=== PATIENT | male | born 1995 | race Caucasian/White ===

== ENCOUNTER 2020-02-15 20:36 | Emergency (ER) | payer MEDICAID, SELFPAY ==
[2020-02-15 20:44] VITALS: BP 143/97; PULSE 100; RESP 16; TEMP 36.9; O2SAT 98; BMI 19.8
--- NOTE | 2020-02-15 20:50 | W.ED.EXTPRO ---
HPI - Extremity Problem General: Chief complaint: Extremity Injury, Lower Stated complaint: left foot lac Time Seen by Provider: 02/15/20 20:42 Source: patient Mode of arrival: ambulatory Limitations: no limitations History of Present Illness: HPI Narrative: 24-year-old male who stepped on a fishhook roughly 30 minutes ago. Tavares is embedded into his left heel. He states is painful and rates his pain a 5 out of 10. Denies any worsening improving factors. His last tetanus was 2 years ago. This did not go through his shoe. Associated symptoms: Deny chest pain, fever(s) or rash Review of Systems Const: Denies: fever, chills, body aches or change in appetite Eyes: Denies: blurry vision or eye discomfort ENMT: Denies: throat pain or dental pain Card: Denies: chest pain Resp: Denies: shortness of breath GI: Denies: abdominal pain, nausea, vomiting or diarrhea : Denies: painful urination Musc: Denies: neck pain or back pain Skin/Breast: Denies: rash Neuro: Denies: headache Psych: Denies: depression Maninder/Lymph: Denies: easy bruising All/Imm: Denies: hives PFSH ED PFSH: Social History Smoking and tobacco status: never smoked Physical Exam Const: COMMON NORMALS: no apparent distress, oriented x3 and healthy appearing HENMT: COMMON NORMALS: normocephalic and head/scalp atraumatic HEAD & SCALP: normocephalic and atraumatic Eye: COMMON NORMALS: PERRL and EOMs intact bilaterally PUPIL: Yes PERRL Neck/C-Spine: COMMON NORMALS: full ROM and supple Chest: COMMONS NORMALS: inspection of chest normal and palpation of chest normal Resp: COMMON NORMALS: normal respiratory effort, no retractions, no use of accessory muscles and clear to auscultation bilaterally AUSCULTATION: clear to auscultation bilaterally Cardio: COMMON NORMALS: regular rate, regular rhythm and no murmurs RATE: regular rate RHYTHM: regular rhythm GI: COMMON NORMALS: normal to inspection, nondistended, normoactive bowel sounds, soft to palpation, non-tender and no masses PALPATION: Yes soft Extremity: COMMON NORMALS: normal to inspection and full ROM Neuro: COMMON NORMALS: oriented x3, moves all extremities and no focal motor deficits Psych: COMMON NORMALS: mental status grossly normal, thought process normal and cooperative THOUGHT PROCESS: normal thought process Skin: COMMON NORMALS: no rashes or lesions noted and no wounds NARRATIVE SKIN EXAM: Lissette fishhook to left heel GENERAL SKIN EXAM: no rashes or lesions noted Procedures Foreign Body Removal Site: left and foot (heel) Description of foreign body: fish hook Sedation/Analgesia: other (10ml lidocaine without epi) Technique: manual removal Confirmed by:: direct visualization Complications: none Post-procedure exam: awake, alert Neurovascular: normal distal pulse Course Vital Signs: Vital signs: Vital Signs Temperature 98.4 F 02/15/20 20:44 Pulse Rate 100 02/15/20 20:44 Respiratory Rate 16 02/15/20 20:44 Blood Pressure 143/97 02/15/20 20:44 Pulse Oximetry 98 02/15/20 20:44 MDM - Extremity (Nontraumatic) MDM Narrative: Medical decision making narrative: Patient presents here with fishhook to the bottom of his foot that I suspect is fully removed without any difficulty. I push the fishhook through is can clip the lissette off and pulled the rest out. Patient is stable for discharge and will place on Augmentin. He is to return if worsening. He understands agrees to plan. Discharge Plan Discharge Patient Disposition: Home, Self-Care Clinical Impression: Foreign body in foot Qualifiers: Encounter type: initial encounter Laterality: left Qualified Code(s): S90.852A - Superficial foreign body, left foot, initial encounter Condition: Stable Prescriptions: New Augmentin 875-125 mg tablet 1 tab PO BID Qty: 14 RF: 0 Discharge Orders: Discharge Order (Routine); Ordered 02/15/20 Ordered By: Uvaldo Martinez Discharge Diet: Advance as tolerated Discharge Activity: Resume usual activity Patient Instructions: Soft Tissue Foreign Body (ED) Coding Level of Care Code ED Head Of Training And Development for Apolonia Aguillon
--- NOTE | 2020-02-15 20:52 | PC.NURSE ---
Received patient to ER via ambulation with complaint of stepping on a fish hook getting it stuck in his left heel.
== END 2020-02-15 21:02 | disposition home or self-care (01) ==
LOC: ER 20:51
PROVIDERS: Emergency Provider Emergency Medicine
DX: S90.852A Superficial foreign body, left foot, initial encounter (principal); W22.8XXA Striking against or struck by other objects, initial encounter
CPT/HCPCS: 12345; 99281; 99283

== ENCOUNTER 2020-06-22 18:59 | Emergency (ER) | payer MEDICAID, SELFPAY ==
[2020-06-22 19:03] VITALS: BP 127/91; PULSE 91; RESP 18; TEMP 36.6; O2SAT 97; BMI 15.2
--- NOTE | 2020-06-22 19:07 | ED_ITS ---
HPI - Nausea/Vomiting/Diarrhea General: Chief complaint: Nausea/Vomiting/Diarrhea Stated complaint: VOMITING Time Seen by Provider: 06/22/20 19:06 Source: patient Mode of arrival: ambulatory Limitations: no limitations History of Present Illness: HPI Narrative: Patient is a 24-year-old male presents to ED today with a complaint of nausea and vomiting that began approximately an hour ago. Patient tells me he was outside and he just came inside when he began developing nausea. He states he has vomited approximately 10 times. He does not describe any episodes of hematemesis or coffee-ground emesis. He complains of some abdominal pain during episodes of vomiting but otherwise none. He has been having normal bowel movements. No fevers. Denies bad food exposure. No recent antibiotic use. No new medications. No sick contacts. MD elicited complaint: nausea, vomiting and abdominal pain Onset (ago): hour(s) Description of vomiting: watery Associated nausea: Yes Associated abdominal pain: Yes Associated symtoms: Reports nausea; Denies bloating, change in vision, chest pain or dysuria Review of Systems Const: Denies: fever(s) or chills Eyes: Denies: change in vision ENMT: Denies: throat pain, odynophagia or oral sores Card: Denies: chest pain Resp: Denies: dyspnea GI: Reports: abdominal pain, nausea and vomiting; Denies: hematemesis, coffee ground emesis, dysphagia, heartburn, diarrhea, bloating or change in bowel habits : Denies: flank pain, difficulty urinating, dysuria, urinary frequency or urinary urgency Musc: Denies: neck pain, back pain or extremity pain Skin/Breast: Denies: rash Neuro: Denies: numbness in extremities, weakness in extremities or sensory changes PFS ED PFSH: Social History Smoking and tobacco status: never smoked Physical Exam Const: COMMON NORMALS: no acute distress, average body habitus, patient oriented x3, no limitations, healthy appearing, alert and well nourished ORIENTATION/CONSCIOUSNESS: Yes oriented to person, Yes oriented to place and Yes oriented to time Resp: COMMON NORMALS: normal respiratory effort and clear to auscultation bilaterally AUSCULTATION: clear to auscultation bilaterally Cardio: COMMON NORMALS: regular rate and regular rhythm RATE: regular rate RHYTHM: regular rhythm GI: COMMON NORMALS: Normal to inspection, nondistended, normoactive bowel sounds present, Soft to palpation, No hepatosplenomegaly present and no masses PALPATION: Yes Soft to palpation, Yes Tenderness to palpation present (GI) (epigastric; throughout lower abdomen; non-surgical exam) and Yes No hepatosplenomegaly present : COMMON NORMALS: Yes no CVA tenderness BLADDER/KIDNEY EXAM: Yes no CVA tenderness Back/Pelvis: COMMON NORMALS: no CVA tenderness Extremity: COMMON NORMALS: normal to inspection Neuro: COMMON NORMALS: patient oriented x3 SENSORIUM/ORIENTATION: Yes alert, Yes oriented to person, Yes oriented to place and Yes oriented to time Skin: COMMON NORMALS: no rashes or lesions noted GENERAL SKIN EXAM: no rashes or lesions noted Course Vital Signs: Vital signs: Vital Signs Temperature 97.8 F 06/22/20 19:03 Pulse Rate 78 06/22/20 20:21 Respiratory Rate 16 06/22/20 20:21 Blood Pressure 123/87 06/22/20 20:21 Pulse Oximetry 99 06/22/20 20:21 MDM - Nausea/Vomiting/Diarrhea MDM Narrative: Medical decision making narrative: Patient symptoms just beginning an hour ago. He states he feels much better after Zofran, fluids, and a GI cocktail. He was able to hold down Sprite and crackers. He has a nonsurgical abdomen at this time. I do not feel emergent imaging is warranted at this time. He does have a white count of 22,000 on his CBC however I feel this is most likely reactive/from patient vomiting over the past hour. Strict return to ED precautions were given. Lab Data: Labs: Lab Results 06/22/20 06/22/20 Range/Units 19:22 19:22 WBC 22.7 H (4.0-10.0) 10^3/ uL RBC 5.46 H (4.1-5.3) 10^6/u L Hgb 16.2 (11.7-16.6) g/dL Hct 48.7 (42.0-52.0) % MCV 89.2 (80-94) fL MCH 29.7 (28.0-34.0) pg MCHC 33.3 (30.0-36.0) g/dL RDW 11.9 L (12.1-15.1) % Plt Count 313 (130-400) 10^3/c mm MPV 10.8 H (7.4-10.4) fL Neut % (Auto) 82.5 % Lymph % (Auto) 7.9 % [place] % (Auto) 7.1 % Eos % (Auto) 1.7 % Baso % (Auto) 0.4 % Neut # (Auto) 18.77 H (1.8-7.7) 10^3/u L Lymph # (Auto) 1.8 (0.8-4.8) 10^3/u L [place] # (Auto) 1.6 H (0.2-0.9) 10^3/u L Eos # (Auto) 0.4 (0.0-0.8) 10^3/u L Baso # (Auto) 0.1 (0.0-0.1) 10^3/u L Nucleated RBC % (a uto) 0 % Nucleated RBCs # 0.0 /100WBC Sodium 140 (136-145) mmol/L Potassium 3.7 (3.5-5.1) mmol/L Chloride 101 (98-107) mmol/L Carbon Dioxide 26 (22-29) mmol/L Anion Gap 16.7 (5-19) BUN 18 (6-20) mg/dL Creatinine 0.9 (0.7-1.2) mg/dL GFR Calculation 105.5 (90-130) mL/min Glucose 127 H (65-115) mg/dL Calculated Osmolal ity 288 (285-295) mOsm/k g Calcium 10.6 H (8.5-10.5) mg/dL Total Bilirubin 2.0 H (0.15-1.2) mg/dL AST 25 (0-40) U/L ALT 17 (0-41) U/L Alkaline Phosphata se 91 (40-130) IU/L Total Protein 8.2 (6.6-8.7) g/dL Albumin 5.9 H (3.5-5.2) g/dL Globulin 2.3 (1.3-4.6) g/dL Discharge Plan Discharge Patient Disposition: Home Clinical Impression: Nausea & vomiting Qualifiers: Vomiting type: unspecified Vomiting Intractability: non-intractable Qualified Code(s): R11.2 - Nausea with vomiting, unspecified Condition: Stable Prescriptions: New Zofran 4 mg tablet 4 mg PO Q6H PRN (Reason: nausea and vomiting) Qty: 14 RF: 0 Discharge Orders: Discharge Order (Routine); Ordered 06/22/20 Ordered By: Sharlene Rausch Patient Instructions: Acute Nausea and Vomiting (ED) Activity Restrictions/Additional Instructions: As discussed please return to the emergency department for worsening abdominal pain, repetitive episodes of vomiting, blood in your vomit, fevers, or any other concerns you may have. Discharge Date/Time: 06/22/20 20:29 Coding Level of Care Code ED Sergeant Of Corrections for Chg Fwd Exam Detailed
[2020-06-22] MEDS: sodium chloride 0.9% 1,000 ML 999 ML IV (19:25)
[2020-06-22] MEDS: ondansetron 2 mg/ML SDV 2 mL 4 MG IVP (19:25)
[2020-06-22 19:31] LABS: Basophils # 0.1 10^3/uL (0.0-0.1); Basophils % 0.4 %; Eosinophils # 0.4 10^3/uL (0.0-0.8); Eosinophils % 1.7 %; Hematocrit 48.7 % (42.0-52.0); Hemoglobin 16.2 g/dL (11.7-16.6); Lymphocytes # 1.8 10^3/uL (0.8-4.8); Lymphocytes % 7.9 %; Mean Corpuscular HGB Conc 33.3 g/dL (30.0-36.0); Mean Corpuscular Hemoglobin 29.7 pg (28.0-34.0); Mean Corpuscular Volume 89.2 fL (80-94); Mean Platelet Volume 10.8 fL (7.4-10.4); Monocytes # 1.6 10^3/uL (0.2-0.9); Monocytes % 7.1 %; Neutrophils # 18.77 10^3/uL (1.8-7.7); Neutrophils % 82.5 %; Nucleated Red Blood Cells % 0 %; Platelet Count 313 10^3/cmm (130-400); Red Blood Count 5.46 10^6/uL (4.1-5.3); Red Cell Distribution Width 11.9 % (12.1-15.1); White Blood Count 22.7 10^3/uL (4.0-10.0)
[2020-06-22] MEDS: lidocaine 2% viscous 15 ML, aluminum-mag hydrox-simethicon 30 ML, sucralfate oral liq 1 GM PO (19:38)
[2020-06-22 19:54] LABS: Alanine Aminotransferase 17 U/L (0-41); Albumin Level 5.9 g/dL (3.5-5.2); Alkaline Phosphatase 91 IU/L (40-130); Anion Gap 16.7 (5-19); Aspartate Amino Transferase 25 U/L (0-40); Blood Urea Nitrogen 18 mg/dL (6-20); Calcium 10.6 mg/dL (8.5-10.5); Carbon Dioxide 26 mmol/L (22-29); Chloride 101 mmol/L (98-107); Globulin 2.3 g/dL (1.3-4.6); Glomerular Filtration Rate 105.5 mL/min (90-130); Glucose 127 mg/dL (65-115); Osmolality Calculated 288 mOsm/kg (285-295); Potassium 3.7 mmol/L (3.5-5.1); Sodium 140 mmol/L (136-145); Total Protein 8.2 g/dL (6.6-8.7)
[2020-06-22 20:21] VITALS: BP 123/87; PULSE 78; RESP 16; O2SAT 99
[2020-06-22] MEDS: ondansetron 4 MG Tablet PO (20:24)
== END 2020-06-22 20:29 | disposition home or self-care (01) ==
PROVIDERS: Emergency Provider Physician Assistant
DX: R11.2 Nausea with vomiting, unspecified (principal)
CPT/HCPCS: 12345; 36415; 80053; 85025; 96361; 96374; 99282; 99283; J2405; J7030; Q0162

== ENCOUNTER 2025-09-12 11:53 | Emergency (ER) | payer MEDICAID, SELFPAY ==
[2025-09-12 11:57] VITALS: BP 128/76; PULSE 60; RESP 14; TEMP 36.4; O2SAT 100; BMI 16.1
[2025-09-12 12:32] LABS: Glucose Urine UA Negative (Normal); Nitrate Urine Negative (Negative); Specific Gravity, Urine 1.028 (1.005-1.030)
[2025-09-12 12:40] LABS: Add Urine Microscopic? YES
[2025-09-12 12:56] LABS: UA Slide Review UA Slide Review Perf
--- NOTE | 2025-09-12 13:22 | CTR_ITS ---
PROCEDURE INFORMATION: Exam: CT Abdomen And Pelvis Without Contrast Exam date and time: 09/12/2025 1:41 PM Age: 30 years old Clinical indication: Other: Hematuria; Other: Suprapubic pain; Additional info: Suprapubic pain, hematuria TECHNIQUE: Imaging protocol: Computed tomography of the abdomen and pelvis without contrast. Radiation optimization: All CT scans at this facility use at least one of these dose optimization techniques: automated exposure control; mA and/or kV adjustment per patient size (includes targeted exams where dose is matched to clinical indication); or iterative reconstruction. COMPARISON: CR XR ribs RT mn 3V w [id number] 05/15/2019 4:20 PM RADIATION DOSE METRICS: Total DLP (mGy-cm): 301.13 FINDINGS: Liver: Normal. No mass. Gallbladder and biliary ducts: Normal. No calcified stones. No ductal dilation. Pancreas: Normal. No ductal dilation. Spleen: Normal. No splenomegaly. Adrenal glands: Normal. No mass. Kidneys and ureters: There is slight prominence of the distal right ureter. 1-2 mm stone is seen at the right ureterovesical junction or possibly just beyond it in the bladder. Stomach and bowel: Unremarkable. No obstruction. No mucosal thickening. Appendix: No evidence of appendicitis. Intraperitoneal space: Unremarkable. No free air. No significant fluid collection. Vasculature: Unremarkable. No abdominal aortic aneurysm. Lymph nodes: Unremarkable. No enlarged lymph nodes. Urinary bladder: See Kidneys and ureters finding. Reproductive: Unremarkable as visualized. Bones/joints: Minimal multifocal hyperdensities are seen in the right kidney which may be medullary. It may represent forme fruste of renal stones. Soft tissues: Unremarkable. CT/CT abdomen pelvis wo con [id number] IMPRESSION: 1. 1-2 mm calculus at the right ureterovesical junction or possibly just beyond it with slight distal ureterectasis on the right. 2. Possible early stones in the right kidney. COMMENTS: Consistent with the [employer] [employer]'s Incidental Findings Committee white paper (J Am Addie Radiol 2018): Any incidental renal lesion less than 1 cm or classified as too small to characterize, or any incidental cystic renal lesion characterized as simple-appearing, is likely benign. No follow-up imaging is recommended for these lesions per consensus recommendations based on imaging criteria.
--- NOTE | 2025-09-12 13:24 | ED_ITS ---
HPI - Abdominal Pain General: Chief Complaint: Abdominal Pain Stated Complaint: groin pain Time Seen by Provider: 09/12/25 13:03 History of Present Illness: Patient is stating he got up to void this morning, and had severe suprapubic pain, where he could not void. 3 days ago, he had blood in his urine. He has never had this occur before. He is main complaint is the dysuria. He states he does not fully empty his bladder, and feels as if he needs to void again. Associated Symptoms: Reports nausea; Denies bloating, change in bowel habits, chills, coffee ground emesis, diarrhea, dysuria, fever(s), heartburn, hematemesis and vomiting Related Data Previous Rx's ?Medication ?Instructions ?Recorded cephalexin 500 mg capsule 500 mg PO BID 5 days #10 cap s 09/12/25 cephalexin 500 mg capsule 500 mg PO BID 5 days #10 cap s 09/12/25 ketorolac 10 mg tablet 10 mg PO Q8H PRN pain 5 days #14 09/12/25 tabs methocarbamol 750 mg tablet 750 mg PO Q8H PRN muscle s pasm #30 09/12/25 tabs tamsulosin 0.4 mg capsule 0.4 mg PO DAILY #30 caps 12/06 Allergies Allergy/AdvReac Type Severity Reaction Status Date / Time No Known Allergies Allergy Verified 09/12/25 12:02 Review of Systems Const: Denies: fever(s) or chills Eyes: Denies: change in vision ENMT: Denies: throat pain, odynophagia or oral sores Card: Denies: chest pain or palpitations Resp: Denies: dyspnea or non-productive cough GI: Reports: abdominal pain and nausea; Denies: vomiting, hematemesis, coffee ground emesis, dysphagia, heartburn, diarrhea, bloating or change in bowel habits : Denies: flank pain, difficulty urinating, dysuria, urinary frequency or urinary urgency Musc: Denies: neck pain, back pain or extremity pain Skin/Breast: Denies: rash Neuro: Denies: numbness in extremities, weakness in extremities or sensory changes PFSH ED PFSH: Social History Smoking and tobacco/nicotine status: never used tobacco/nicotine Physical Exam Const: COMMON NORMALS: no acute distress, average body habitus, patient oriented x3, no limitations, healthy appearing, alert and well nourished ORIENTATION/CONSCIOUSNESS: Yes oriented to person, Yes oriented to place and Yes oriented to time HENMT: COMMON NORMALS: normocephalic and atraumatic HEAD & SCALP: normocephalic and atraumatic Neck/C-Spine: COMMON NORMALS: full ROM, no lymphadenopathy and supple Lymph: LYMPHATIC: no lymphadenopathy noted Resp: COMMON NORMALS: normal respiratory effort and clear to auscultation bilaterally AUSCULTATION: clear to auscultation bilaterally Cardio: COMMON NORMALS: regular rate and regular rhythm RATE: regular rate RHYTHM: regular rhythm GI: COMMON NORMALS: Soft to palpation, No hepatosplenomegaly present and no masses PALPATION: Yes Soft to palpation, Yes Tenderness to palpation present (GI) (Suprapubic), No Guarding due to palpation present (GI) and Yes No hepatosplenomegaly present : COMMON NORMALS: Yes no CVA tenderness BLADDER/KIDNEY EXAM: Yes no CVA tenderness Back/Pelvis: COMMON NORMALS: no CVA tenderness Extremity: COMMON NORMALS: normal to inspection Neuro: COMMON NORMALS: patient oriented x3 SENSORIUM/ORIENTATION: Yes alert, Yes oriented to person, Yes oriented to place and Yes oriented to time Skin: COMMON NORMALS: no rashes or lesions noted GENERAL SKIN EXAM: no rashes or lesions noted Course Vital Signs: Vital signs: Vital Signs Temperature 97.5 F L 09/12/25 11:57 Pulse Rate 59 L 09/12/25 14:47 Respiratory Rate 16 09/12/25 14:47 Blood Pressure 126/58 09/12/25 14:47 Pulse Oximetry 96 09/12/25 14:47 Oxygen Delivery Me thod Room Air 09/12/25 13:31 MDM - Abdominal Pain Medical Decision Making Patient is a 30-year-old male presents to ED with suprapubic pain. He was found to have renal colic with 1 to 2 mm calculus at UVJ. He also had a slight distal possibly early stone. Will refer him to urology. Will have him strain his urine. Tamsulosin, antibiotic, and analgesics sent to the pharmacy. All of his questions answered to his satisfaction. Medical Records I reviewed the patient's medical records. Lab Data I reviewed the patient's lab results. Labs/Radiology: Radiology Impressions Abdomen/Pelvis CT 09/12/25 13:22 IMPRESSION: 1. 1-2 mm calculus at the right ureterovesical junction or possibly just beyond it with slight distal ureterectasis on the right. 2. Possible early stones in the right kidney. COMMENTS: Consistent with the [place] [employer]'s Incidental Findings Committee white paper (J Am Addie Radiol 2018): Any incidental renal lesion less than 1 cm or classified as too small to characterize, or any incidental cystic renal lesion characterized as simple-appearing, is likely benign. No follow-up imaging is recommended for these lesions per consensus recommendations based on imaging criteria. Laboratory Results Urine Color Yellow (Yellow) 09/12/25 12:16 Urine Appearance Clear (CLEAR) 09/12/25 12:16 Urine pH 5.5 (5-7) 09/12/25 12:16 Ur Specific [place] 1.028 (1.005-1.030) 09/12/25 12:16 Urine Protein 3+ (Negative) A 09/12/25 12:16 Urine Glucose (UA) Negative (Normal) 09/12/25 12:16 Urine Ketones Negative (Negative) 09/12/25 12:16 Urine Blood 3+ (Negative) A 09/12/25 12:16 Urine Nitrate Negative (Negative) 09/12/25 12:16 Urine Bilirubin Negative (Negative) 09/12/25 12:16 Urine Urobilinogen 1.0 mg/dL (Negative) 09/12/25 12:16 Ur Leukocyte Esterase Negative (Negative) 09/12/25 12:16 Urine RBC 3-5 /hpf (0-2) 09/12/25 12:16 Urine WBC 0-5 /hpf (0-5) 09/12/25 12:16 Ur Squamous Epith Cells 0-5 /hpf (0-5) 09/12/25 12:16 Amorphous Sediment Not Reportable 09/12/25 12:16 Urine Bacteria None seen /hpf (NONE) 09/12/25 12:16 Hyaline Casts 4.11 /lpf 09/12/25 12:16 C. trachomatis (PCR) Not detected (Negative) 09/12/25 13:33 N. gonorrhoeae (PCR) Not detected (Negative) 09/12/25 13:33 All radiology interpretation(s) finalized by discharge Discharge Plan Discharge Patient Disposition: Home Clinical Impression: Ureterolithiasis Condition: Stable Prescriptions: New cephalexin 500 mg capsule 500 mg PO BID 5 Days Qty: 10 0RF tamsulosin 0.4 mg capsule 0.4 mg PO DAILY Qty: 30 0RF cephalexin 500 mg capsule 500 mg PO BID 5 Days Qty: 10 0RF ketorolac 10 mg tablet 10 mg PO Q8H PRN (Reason: pain) 5 Days Qty: 14 0RF methocarbamol 750 mg tablet 750 mg PO Q8H PRN (Reason: muscle spasm) Qty: 30 0RF Discharge Orders: Discharge ED (Routine); Ordered 09/12/25 Ordered By: Beckie Ramirez Discharge Diet: Clear Liquid Discharge Activity: Resume usual activity Patient Instructions: Renal Colic (ED), Abdominal Pain (ED), Patient Portal & German Instructions Activity Restrictions/Additional Instructions: - Strain all your urine -Case management will be contacting you for follow-up with urology - Return to the ED with worsening pain, nausea, vomiting. - Clear liquid diet only until pain resolves Thank you for choosing [facility] for your healthcare needs today. You have been screened and evaluated and felt safe for discharge. Health conditions do change or evolve sometimes and as such it is important that you follow up with your Primary Doctor to be re checked, 3-5 days is a general good time frame for follow up. You are always welcome to return to the ED for re assessment if your symptoms are worsening or you have new concerns Stand Alone Forms: Work/School Release Print Language: [place]se Coding Level of Care Code ED It Infrastructure Architect for Apolonia Aguillon
[2025-09-12 13:31] VITALS: PULSE 77; O2SAT 99
[2025-09-12] MEDS: orphenadrine 30 mg/mL Inj 2 mL 60 MG IM (14:32)
[2025-09-12] MEDS: cefTRIAXone 1,000 MG in water for injection-sterile 2.1 ML 2.1 MG IM (14:32)
[2025-09-12 14:47] VITALS: BP 126/58; PULSE 59; RESP 16; O2SAT 96
[2025-09-12 15:12] LABS: Neisseria Gonorrhea NOT DETECTED (Negative)
== END 2025-09-12 14:58 | disposition home or self-care (01) ==
PROVIDERS: Emergency Provider Physician Assistant
DX: N20.1 Calculus of ureter (principal)
CPT/HCPCS: 74176; 81001; 87491; 87591; 96372; 99284; J0696; J1885; J2360; J9999